=== PATIENT | female | born 1945 | race Caucasian/White ===

== ENCOUNTER 2017-10-04 10:50 | Outpatient (CLI) | payer MEDICARE ==
[~2017-10-04] VITALS: Ht 165.1 cm; Wt 79.5 kg
--- NOTE | ~2017-10-04 | HEMODYNAMI ---
PATIENT:RANJANA CHRISTIANSON MEDICAL RECORD: [id number] : 47 LOCATION:DOPAL ADMISSION DATE: 10/04/17 Generatedon:10/04/201713:36 Patient name: RANJANA CHRISTIANSON Patient #: [id number] SSN: : 1945 Date of study: 10/04/2017 Page: Of Hemodynamic Procedure Report Patient Data Patient Demographics Procedure consent was obtained First Name: RANJANA Gender: Female Last Name: SAMMY : 1945 [facility] Initial: K Age: 72 year(s) Patient #: [id number] Race: Unknown Additional ID: [id number] Contact details [address]: [address] [place] [address] [place] State: [place] City: [place] Zip code: [address] Past Medical History Allergies Allergen Reaction Date Comments Reported Other allergy 10/04/2017 Morphine, Sulfa Other allergy 10/04/2017 Lidocaine Admission Admission Data Admission Date: 10/04/2017 Admission Time: 10:50 Admit Source: Other Height (in.): 67 BSA: 1.91 (m2) Height (cm.): 170.18 BMI: 27.41 (kg/m2) Weight (lbs.): 175 Weight (kg.): 79.38 Lab Results Lab Result Date: 10/04/2017 Lab Result Time: 11:30 Biochemistry Name Units Result Min Max BUN mg/dl 21 --(----)-* 7 18 Creatinine mg/dl 0.9 --(-*--)-- 0.6 1.3 CBC Name Units Result Min Max Hematocrit % 41.6 -*(----)-- 42 54 Hemoglobin g/dl 13.8 --(*---)-- 13.5 17.5 Procedure Procedure Types Cath Procedure Diagnostic Procedure LHC LHC w/Coronaries Miscellaneous Procedures Moderate Sedation up to 15 minutes Procedure Description Procedure Date Procedure Date: 10/04/2017 Procedure Start Time: 13:24 Procedure End Time: 13:32 Procedure Staff Name Function Caesar Monroy MD Performing Physician Arlette Bone RT Scrub James Butler RN Nurse Karishma Soni RT Monitor Procedure Data Cath Procedure Fluoroscopy Diagnostic fluoroscopy Total fluoroscopy Time: 1.3 time: 1.3 min min Diagnostic fluoroscopy Total fluoroscopy dose: 337 dose: 337 mGy mGy Contrast Material Contrast Material Type Amount (ml) Isovue 300 55 Entry Location Entry Primary Successful Side Size Upsize Upsize Entry Closure Laird ccessful Closure Location (Fr) 1 (Fr) 2 (Fr) Remarks Device Remarks Radial Right 6 Fr Mechanical artery Short Compression Estimated blood loss: 10 ml Diagnostic catheters Device Type Used For End Catheter Placement Diagnostic Terumo 5Fr Procedure [place] 110cm catheter Procedure Complications No complications Procedure Medications Medication Administration Route Dosage Oxygen NC 2 l/min Heparin Flush Bag added to field 2 bags (1000units/500ml NS) 0.9% NaCl I.V. 100 ml/hr Radial Cocktail added to field 1 syringe (Verapomil 2mg/Nitro 400mcg/Heparin 1500units) Fentanyl I.V. 50 mcg Versed I.V. 1 mg Radial Cocktail I.A. 1 syringe (Verapomil 2mg/Nitro 400mcg/Heparin 1500units) Hemodynamics Rest BSA: 1.91 (m2) HGB: 13.8 (g/dl) O2 Consumption: Estimated: 186.42 (ml/min) O2 Co nsumption indexed: Estimated:97.6 (ml/min/m) Heart Rate: 85 (bpm) Pressure Samples Time Site Value (mmHg) Purpose Heart Use Rate(bpm) 13:26 LV 141/0,21 Snapshot 88 13:26 LV 132/1,16 Snapshot 87 13:27 AO 129/52(86) Snapshot 89 Gradients Valve Time Site Site Mean SEP/DFP Peak To Heart Use 1 2 (mmHg) (sec/min) Peak Rate (mmHg) (bpm) Aortic 13:27 LV AO 90 Snapshots Pre Cath Intra NCS Post Cath Vital Signs Time Heart Resp SPO2 etCO2 NIBP (mmHg) Rhythm Pain Sedation Rate (ipm) (%) (mmHg) Status Level (bpm) 13:12:20 82 20 98 0 160/75(128) NSR 0 (11) 10(A) , No pain 13:16:45 91 20 98 0 154/74(108) NSR 0 (11) 10(A) , No pain 13:21:05 85 21 100 31.8 141/71(110) NSR 0 (11) 9(A) , No pain 13:25:23 83 17 96 32.6 127/65(100) NSR 0 (11) 9(A) , No pain 13:29:39 82 19 93 28.8 117/56(87) NSR 0 (11) 9(A) , No pain 13:35:39 75 19 96 36.4 122/61(94) NSR 0 (11) 9(A) , No pain Medications Time Medication Route Dose Verified Delivered Reason Notes Effectiveness by by 13:19:49 Oxygen NC 2 l/min Caesar James Per Porfirio Butler RN physician 13:19:57 Heparin Flush added 2 bags Caesar James used for Bag to Porfirio Butler RN procedure (1000units/500ml field NS) 13:20:07 0.9% NaCl I.V. 100 Caesar James Per ml/hr Porfirio Butler RN physician 13:20:15 Radial Cocktail added 1 Caesar James used for (Verapomil to syringe Porfirio Butler slipper maker 2mg/Nitro field 400mcg/Heparin 1500units) 13:20:39 Fentanyl I.V. 50 mcg Caesar James for sedation Porfirio Butler RN 13:20:45 Versed I.V. 1 mg Caesar James for sedation Porfirio Butler RN 13:26:57 Radial Cocktail I.A. 1 Caesar Caesar for (Verapomil syringe Porfirio Monroy MD vasodilation 2mg/Nitro 400mcg/Heparin 1500units) Procedure Log Time Note 12:50:19 Informed consent obtained and on chart 12:50:58 Admit Source: Other 12:51:04 Diagnostic Cath status Elective 12:51:08 Nelson Bowen RT(R) sent for patient. Start room use. 12:51:09 Time tracking: Regular hours 12:51:14 Plan of Care:Hemodynamics will remain stable., Cardiac rhythm will remain stable., Comfort level will be maintained., Respiratory function will remain adequate., Patient/ family verbilizes understanding of procedure., Procedure tolerated without complication., Recovers from procedure without complications.. 12:51:33 H&P Date Dictated: 09/23/2017 Within 30 days and on chart., H&P Addendum completed by physician on day of procedure. (MUST COMPLETE FOR ALL OUTPATIENTS). 12:53:41 Lab Result : Hemoglobin 13.8 g/dl 12:53:41 Lab Result : Creatinine 0.9 mg/dl 12:53:41 Lab Result : BUN 21 mg/dl 12:53:41 Lab Result : Hematocrit 41.6 % 13:05:18 Patient received from Pre/Post Procedure Room to CCL 2 Alert and oriented. Tansferred to table in Supine position. 13:05:19 Warm blankets applied, and elizabeth hugger turned on for patient comfort. 13:05:20 Correct patient and procedure confirmed by team. 13:05:22 ECG and BP/O2 sat monitors applied to patient. 13:05:24 Pre-procedure instructions explained to patient. 13:05:27 Family in waiting room. 13:05:29 Patient NPO since Midnight. 13:05:58 Patient allergic to Other allergyMorphine, Sulfa 13:06:02 Is the patient allergic to Iodine/contrast media? No. 13:10:00 Procedure type changed to Cath procedure, Diagnostic procedure, LHC, LHC w/Coronaries, Miscellaneous Procedures, Moderate Sedation up to 15 minutes 13:10:15 Patient Height : 67 inches 13:10:21 Patient Weight : 175 lbs 13:11:08 Vital chart was started 13:11:10 Baseline sample Acquired. 13:11:14 Full Disclosure recording started 13:11:35 Patient allergic to Other allergyLidocaine 13:11:40 Is patient on blood thinner?No 13:12:00 Patient diabetic? Yes. 13:12:02 If diabetic: On Metformin? No 13:12:06 Snore? Yes 13:12:07 Sleep apnea? No 13:12:11 Dentures? No ? 13:12:21 IV patent on arrival in left forearm with 0.9% NaCl at [facility]. 13:12:30 Lab results completed and on chart. 13:12:34 Right Radial & Right Groin area was prepped with chlora-prep and draped in sterile fashion 13:12:35 Alarms reviewed by R. N. 13:12:36 Sharps counted by scrub and verified by R.N. 13:12:37 Physician paged 13:12:38 Physician arrived 13:12:39 --------ALL STOP TIME OUT------ 13:12:40 Final Timeout: patient, procedure, and site verified with staff and physician. All members of the team are in agreement. 13:12:42 Right Radial & Right Groin site verified by team. 13:12:46 Sedation plan: IV Moderate Sedation Versed, Fentanyl 13:14:03 Use device set Radial Dx 13:14:05 Acist Syringe opened to sterile field. 13:14:05 Medline Cath Pack opened to sterile field. 13:14:05 Bag Decanter opened to sterile field. 13:14:06 Terumo 6Fr Slender Glidesheath opened to sterile field. 13:14:06 St Marc 260cm J .035 wire opened to sterile field. 13:14:07 Acist Hand Control opened to sterile field. 13:14:07 Acist Manifold opened to sterile field. 13:14:08 Tegaderm 4 x 4 opened to sterile field. 13:14:08 MBrace Wrist Support opened to sterile field. 13:17:42 Cook 18G 7cm Percutaneous Entry needle opened to sterile field. 13:19:49 Oxygen 2 l/min NC was administered by James Butler RN; Per physician; 13:19:57 Heparin Flush Bag (1000units/500ml NS) 2 bags added to field was administered by James Butler RN; used for procedure; 13:20:07 0.9% NaCl 100 ml/hr I.V. was administered by James Butler RN; Per physician; 13:20:15 Radial Cocktail (Verapomil 2mg/Nitro 400mcg/Heparin 1500units) 1 syringe added to field was administered by James Butler RN; used for procedure; 13:20:39 Fentanyl 50 mcg I.V. was administered by James Butler RN; for sedation; 13:20:45 Versed 1 mg I.V. was administered by James Butler RN; for sedation; 13:24:14 Procedure started. 13:24:30 Local anesthetic to right radial artery with Lidocaine 2% by Caesar Monroy MD.INITIAL ACCESS ONLY 13:25:15 A 6 Fr Short sheath was inserted into the Right Radial artery 13:25:19 J wire advanced. 13:25:27 Zero performed for pressure channel P1 13:26:22 A Diagnostic Terumo 5Fr [place] 110cm catheter was advanced over the wire and used for Procedure. 13:26:57 Radial Cocktail (Verapomil 2mg/Nitro 400mcg/Heparin 1500units) 1 syringe I.A. was administered by Caesar Monroy MD; for vasodilation; 13:27:05 EF : 55 % 13:27:35 LV hemodynamics recorded. 13:27:42 LCA angiography performed. 13:28:57 RCA angiography performed. 13:30:13 Catheter removed. 13:30:14 Terumo TR Band Standard opened to sterile field. 13:30:27 Sheath removed intact; hemostasis achieved with Mechanical Compression to the Right Radial artery. 13:30:30 Procedure ended.(Physican Out) 13:30:48 Fluoroscopy time 01.30 minutes. 13:30:53 Fluoroscopy dose: 337 mGy 13:30:53 Flurop Dose total: 337 13:31:06 Contrast amount:Isovue 300 55ml. 13:31:07 Sharps counted by scrub and verified by R.N. 13:31:12 TR band inflated with 10cc of air. 13:31:16 Post Procedure Pulses reassessed and unchanged 13:31:32 Post procedure rhythm: sinus rhythm 13:31:34 Estimated blood loss: 10 ml 13:31:36 Post procedure instruction explained to patient.Patient verbalizes understanding. 13:31:45 Procedure and supply charges have been captured, reviewed, submitted and are correct. 13:32:20 Procedure Complication : No complications 13:32:22 Vital chart was stopped 13:32:23 See physician's report for complete and final results. 13:32:25 Report given to Pre/Post Procedure Room. 13:32:29 Patient transfered to Pre/Post Procedure Room with Stretcher. 13:32:31 Procedure ended. 13:32:31 Full Disclosure recording stopped 13:32:49 End room use (Document Last) Device Usage Item Name Manufacture Quantity Catalog Hospital Part Current Minima l Lot# / Number Charge Number Stock Stock Serial# Code Acist Acist 1 93461 194796 322815 [id number] 20 Syringe Medical Systems Inc Medline Cath Cardinal 1 [id number] 39833 541955 5 Pack Health Bag Decanter Microtek 1 963211 38543 390997 5 Medical Inc. Terumo 6Fr Terumo 1 [id number] 120488 499826 841310 [address] St Marc 1 257387 476616 204903 688984 30 260cm J .035 wire Acist Hand Acist 1 16577 357745 787917 171195 5 Control Medical Systems Inc Acist Acist 1 57506 254827 850200 617125 5 Manifold Medical Systems Inc Tegaderm 4 x 3M 1 1626W 960206 101858 326373 5 4 MBrace Wrist Advanced 1 140-0250-00 386352 61639 068693 5 Support Vascular Dynamics Cook 18G 7cm Cook Medical 1 [id number] 858907 60334 725427 5 Percutaneous Entry needle Diagnostic Terumo 1 40-1833 452831 670591 356354 5 Terumo 5Fr [place] 110cm catheter Terumo TR Terumo 1 [id number] 172914 318054 251066 40 Band Standard Signature Audit [place] Stage Time Signature Unsigned Intra-Procedure 10/04/2017 Karishma Soni 1:36:14 PM RT(R) Signatures Monitor : Karishma Soni Signature : RT Date : Time : [address] [place] [address]
[2017-10-04] MEDS ORDERED: TENORMIN50 MG PO (11:11)
[2017-10-04] MEDS ORDERED: LEVOTHYROXINE150 MCG PO (11:11)
[2017-10-04] MEDS ORDERED: LISINOPRIL10 MG PO (11:11)
[2017-10-04] MEDS ORDERED: NORVASC10 MG PO (11:12)
[2017-10-04] MEDS ORDERED: CYCLOBENZAPRINE10 MG PO (11:13)
[2017-10-04] MEDS ORDERED: GEMFIBROZIL600 MG PO (11:13)
[2017-10-04] MEDS ORDERED: BAYER CHEWABLE81 MG PO (11:14)
[2017-10-04] MEDS ORDERED: MOBIC7.5 MG PO (11:14)
[2017-10-04 11:18] VITALS: BP 139/69; Ht 165.1 cm; Wt 79.5 kg
[2017-10-04 11:34] LABS: BASOPHILS 0.5 % (0-2); EOSINOPHILS 8.3 % (0-7); HEMATOCRIT 41.6 % (36.0-48.0); HEMOGLOBIN 13.8 g/dL (12-16); IMMATURE GRANULOCYTES 0.5 % (0-5); LYMPHOCYTES 31.7 % (15-50); MCHC 33.2 g/dL (31.0-37.0); MCV 96.5 fL (80.0-100.0); MEAN PLATELET VOLUME 9.8 fL (7.4-10.4); MONOCYTES 8.5 % (2-11); NEUTROPHILS 50.5 % (40-80); PLATELET COUNT 267 10x3/uL (130-400); RBC 4.31 10x6/uL (4.00-5.40); RDW 12.4 % (11.5-14.5); WBC 7.3 10x3/uL (4.8-10.8)
[2017-10-04 11:57] LABS: ANION GAP 11.8 mmol/L (8-16); CALCIUM 9.9 mg/dL (8.5-10.1); CARBON DIOXIDE 28.5 mmol/L (21.0-32.0); CREATININE - SERUM 0.9 mg/dL (0.6-1.3); POTASSIUM - SERUM 4.3 mmol/L (3.5-5.1)
--- NOTE | 2017-10-04 14:28 | NUR ---
1400 HOB ELEVATED, ROOM AIR. NSR RATE 70 WNO C/O CHEST PAIN. PULSES PALP X 4. R WRIST TR BAND C/D/I W NO HEMATOMA OR BLEEDING. FAMILY AT BEDSIDE.
--- NOTE | 2017-10-04 15:10 | NUR ---
1440 R WRIST TR BAND C/D/I W NO HEMATOMA OR BLEEDING. ALL VITALS WNL.
--- NOTE | 2017-10-04 15:25 | NUR ---
1515 2CC AIR REMOVED FROM R WRIST TR BAND. WILL MONITOR FOR R BLEEDING.
--- NOTE | 2017-10-04 15:37 | NUR ---
AMBULATED TO BATHROOM TO VOID. BACK TO BEDSIDE. DR. DE LEON AT BEDSIDE TO SPEAK WITH FAMILY REGARDING MEDICATION CHANGES.
[2017-10-04] MEDS ORDERED: METOPROLOL TART25 MG PO (15:41)
--- NOTE | 2017-10-04 15:53 | NUR ---
2CC AIR REMOVED R WRIST TR BAND. PIV REMOVED FROM LEFT HAND WITH BANDAID APPLIED.
--- NOTE | 2017-10-04 16:05 | NUR ---
TR BAND WEANED. TEGADERM AND COTTON BALL APPLIED TO R WRIST. D/C INSTRUCTIONS DISCUSSED WITH PATIENT AND AT BEDSIDE. WHEELED OUT VIA WHEELCHAIR BY CATH TEAM.
== END 2017-10-04 16:07 | disposition home or self-care (01) ==
LOC: D.CATH 10:50
PROVIDERS: Internal Medicine Cardiovascular Disease
DX: I20.9 Angina pectoris, unspecified (principal); I10 Essential (primary) hypertension; R00.2 Palpitations; E78.5 Hyperlipidemia, unspecified; Z01.812 Encounter for preprocedural laboratory examination

== ENCOUNTER → 2017-10-27 11:17 | Outpatient (CLI) | payer MEDICARE ==
[2017-10-04 11:18] VITALS: BMI 29.1
[~2017-10-27 11:17] MED LIST: ATROVENT 0.02%2.5 ML UPD; BAYER CHEWABLE81 MG PO; CYCLOBENZAPRINE10 MG PO; GEMFIBROZIL600 MG PO; LEVAQUIN750 MG PO; LEVOTHYROXINE150 MCG PO; LISINOPRIL10 MG PO; METOPROLOL TART25 MG PO; MOBIC7.5 MG PO; NORVASC10 MG PO; PULMICORT0.5 MG/21 INH; TENORMIN50 MG PO
== END | disposition home or self-care (01) ==
LOC: D.CT 11:17
DX: R06.02 Shortness of breath (principal)

== ENCOUNTER 2017-10-27 18:18 | Inpatient (IN) | payer MEDICARE ==
[~2017-10-27] VITALS: Ht 167.6 cm; Wt 84.1 kg
[~2017-10-27 18:18] MED LIST changes: -ATROVENT 0.02%2.5 ML UPD; -LEVAQUIN750 MG PO; -PULMICORT0.5 MG/21 INH
[2017-10-27 20:33] LABS: BASOPHILS 0.5 % (0-2); EOSINOPHILS 5.8 % (0-7); HEMATOCRIT 39.9 % (36.0-48.0); HEMOGLOBIN 13.4 g/dL (12-16); IMMATURE GRANULOCYTES 0.5 % (0-5); LYMPHOCYTES 33.1 % (15-50); MCHC 33.6 g/dL (31.0-37.0); MCV 95.2 fL (80.0-100.0); MEAN PLATELET VOLUME 9.1 fL (7.4-10.4); MONOCYTES 9.4 % (2-11); NEUTROPHILS 50.7 % (40-80); PLATELET COUNT 291 10x3/uL (130-400); RBC 4.19 10x6/uL (4.00-5.40); RDW 12.3 % (11.5-14.5); WBC 7.8 10x3/uL (4.8-10.8)
[2017-10-27 21:04] LABS: ALBUMIN 3.7 g/dL (3.4-5.0); ALKALINE PHOSPHATASE 104 U/L (46-116); ALT (SGPT) 41 U/L (10-68); CALC OSMOLALITY 288 mosm/kg (275-300); CALCIUM 9.5 mg/dL (8.5-10.1); CHLORIDE - SERUM 108 mmol/L (98-107); CREATININE - SERUM 0.8 mg/dL (0.6-1.3); GLUCOSE 125 mg/dL (74-106); POTASSIUM - SERUM 3.5 mmol/L (3.5-5.1); PROTEIN - SERUM 7.4 g/dL (6.4-8.2); SODIUM 144 mmol/L (136-145); UREA NITROGEN 16 mg/dL (7-18); eGFR NON AFRICAN AMERICAN 75 mL/min (90-120)
[2017-10-27 21:07] LABS: TROPONIN-I 0.025 ng/mL (0.000-0.060)
[2017-10-28] VITALS (7 sets, daily range): BP systolic 132–149; BP diastolic 61–74; Ht 167.6 cm; Wt 84.1 kg
--- NOTE | 2017-10-28 00:20 | NUR ---
ADMITTED TO ROOM 2234 FROM ER VIA WHEELCHAIR. ACCOMPLAINTED BY FAMILY. ORIENTED TO ROOM. CL IN REACH.
--- NOTE | 2017-10-28 06:20 | NUR ---
RESTING QUIELTY. NO DISTRESS NOTED. CL IN REAC
--- NOTE | 2017-10-28 08:20 | NUR ---
AWAKE AND ALERT. ORIENTED X3. NO C/O AT THIS TIME. LUNGS ARE DIMINISHED IN LOWER LOBES. OCCASSIONAL DRY COUGH REPORTED. SKIN IS INTACT WITHOUT REDNESS. IV TO RIGHT AC IS PATENT WITHOUT REDNESS AT INSERTION SITE. DENIES NEEDS.
--- NOTE | 2017-10-28 09:10 | NUR ---
REQUESTED AND GIVEN ONE ULTRAM PO FOR C/O HEADACHE LEVEL 6. WILL MONITOR.
--- NOTE | 2017-10-28 09:12 | NUR ---
Patient Name: RANJANA CHRISTIANSON Admission Status: ER Accout number: [id number] Admission Date: 10-27-2017 : 1945 Admission Diagnosis: Attending: COLIN MOLINA Current LOS: 1 Anticipated DC Date: 11-02-2017 Planned Disposition: Home Primary Insurance: [facility] Discharge Planning Comments: CM MET WITH PATIENT REGARDING D/C NEEDS AND PLANS. PATIENT STATED SHE LIVES WITH HER SPOUSE (JULIO) AND HE OR HER CHILDREN WILL DRIVE HER HOME AT DISCHARGE. PATIENT STATED THERE ARE NO STEPS OR STAIRS AT HER HOME. PATIENT IS INDEPENDENT WITH HER CARE AND HAS A WALKER, WHEELCHAIR, SHOWER CHAIR, AND CANE AT HER HOME. PATIENTS PCP IS DR. HURTADO AND PHARMACY IS [facility]. CM WILL CONTINUE TO FOLLOW PATIENT WITH D/C NEEDS AND PLANS. PCP DR[facility] ([facility]) [phone] JULIO (SPOUSE) [phone] End Maker: Elvira Tapia Is the patient Alert and Oriented? Yes 0 * How many steps to enter\exit or inside your home? 0 0 * PCP DR[facility] HURTADO [facility] 0 * [facility]acy [facility] 0 * Preadmission Environment Home with Family 0 * ADLs Independent 0 * Equipment Cane Shower Chair Walker Wheelchair 0 * List name and contact numbers for known caregivers / representatives who currently or will assist patient after discharge: JULIO CHRISTIANSON (SPOUSE) [phone] 0 * Community resources currently utilized None 0 * Additional services required to return to the preadmission environment? Yes 0 * Can the patient safely return to the preadmission environment? Yes 0 * Has this patient been hospitalized within the prior 30 days at any hospital? No 0 Grand Total: 0
--- NOTE | 2017-10-28 11:03 | NUR ---
REPORTS HEAD ACHE IMPROVED AT THIS TIME. FAMILY IN ROOM.
--- NOTE | 2017-10-28 18:21 | NUR ---
ATE ALL OF SUPPER SHE WANTED. ALSO ATE SOME FOOD FAMILY BROUGHT IN. NO CHANGES NOTED. DENIES NEEDS.
[2017-10-29 01:03] VITALS: BP 125/56
[2017-10-29 05:24] VITALS: BP 131/63
--- NOTE | 2017-10-29 06:00 | NUR ---
IV TO RIGHT AC LEAKING. STARTED IV TO RIGHT FOREARM 22G X'S 1 ATTEMPT. SALINE LOCKED IV.
[2017-10-29 06:36] LABS: BASOPHILS 0.2 % (0-2); EOSINOPHILS 0.5 % (0-7); HEMOGLOBIN 12.2 g/dL (12-16); IMMATURE GRANULOCYTES 0.6 % (0-5); LYMPHOCYTES 19.7 % (15-50); MCH 31.6 pg (26.0-34.0); MCV 95.9 fL (80.0-100.0); MEAN PLATELET VOLUME 9.5 fL (7.4-10.4); MONOCYTES 8.3 % (2-11); NEUTROPHILS 70.7 % (40-80); PLATELET COUNT 302 10x3/uL (130-400); RBC 3.86 10x6/uL (4.00-5.40); RDW 12.7 % (11.5-14.5)
[2017-10-29 06:44] LABS: WBC 11.9 10x3/uL (4.8-10.8)
[2017-10-29 06:53] LABS: ANION GAP 12.5 mmol/L (8-16); CALCIUM 8.9 mg/dL (8.5-10.1); CARBON DIOXIDE 27.7 mmol/L (21.0-32.0); CREATININE - SERUM 0.9 mg/dL (0.6-1.3); POTASSIUM - SERUM 4.2 mmol/L (3.5-5.1)
[2017-10-29 07:49] LABS: ERYTHROCYTE SEDIMENTATION RATE 6 mm/hr (0-30)
[2017-10-29 08:26] VITALS: BP 143/65
--- NOTE | 2017-10-29 08:51 | NUR ---
AWAKE AND ALERT. ORIENTED X3. NO C/O AT THIS TIME. LUNGS ARE CLEAR BILATERALLY, OCCASSIONAL DRY COUGH NOTED. SKIN IS INTACT WITHOUT REDNESS. SOME EDEMA NOTED TO BILATERAL ARMS. WILL MONITOR. SL TO RIGHT FOREARM IS PATENT WITHOUT REDNESS AT INSERTION SITE. SITTING UP IN CHAIR AT BEDSIDE AFTER EATING BREAKFAST. DENIES NEEDS.
[2017-10-29 13:03] VITALS: BP 124/58
[2017-10-29 16:05] VITALS: BP 136/63
[2017-10-29] MEDS ORDERED: LEVAQUIN750 MG PO (17:16)
[2017-10-29] MEDS ORDERED: ATROVENT 0.02%2.5 ML UPD (17:51)
[2017-10-29] MEDS ORDERED: PULMICORT0.5 MG/21 INH (17:52)
--- NOTE | 2017-10-29 18:47 | NUR ---
DISCHARGED TO HOME AMBULATORY WITH FAMILY. DISCHARGE INSTRUCTIONS GIVEN BOTH VERBALLY AND WRITTEN. ALL QUESTIONS ANSWERED. PATIENT AND FAMILY VERBALIZED UNDERSTANDING OF SAME. NEEDED PRESCRIPTIONS ESCRIBED TO PHARMACY OF CHOICE. LEFT WITH ALL BELONGINGS.
[2017-10-30 07:22] LABS: IMMUNOGLOBULIN E 707 IU/mL (0-100)
[2017-10-31 18:07] LABS: CYCLIC CITRULL PEPTIDE IGG/IGA 21 units (0-19)
[2017-11-01 10:10] LABS: ANA REFLEX - DIRECT Negative (Negative)
[2017-11-02 03:12] LABS: MYCOPLASMA PNEUMO IGG 176 U/mL (0-99)
--- NOTE | 2017-11-02 12:15 | CN ---
PATIENT NAME:RANJANA CHRISTIANSON MEDICAL RECORD: [id number] : [birth year] LOCATION:D.MS Francis2234 ADMIT DATE: 10/27/17 ACCOUNT: [id number] CONSULTING PHYSICIAN: JENNIFER SEWELL MD REFERRING PHYSICIAN: COLIN MOLINA MD DATE OF CONSULTATION: 10/29/2017 DIAGNOSES: 1. Dysrhythmia -- premature ventricular contractions. 2. Hypertension. 3. Hyperlipidemia. 4. Pneumonia. 5. Possible lung mass. HISTORY OF PRESENT ILLNESS: Ms. Christianson presents with shortness of breath, dyspnea on exertion, found to have pneumonia, possible lung mass. She has had infrequent PVCs are unifocal on her EKG. Her echocardiogram was with a normal ejection fraction and normal chamber sizes. She is on a beta-kasia in the form of metoprolol 25 mg b.i.d. as well for her blood pressure. She is on lisinopril and amlodipine. PHYSICAL EXAMINATION: GENERAL APPEARANCE: Well-nourished, well-developed, appears stated age. Level of distress, comfortable. PSYCHIATRIC: Mental status, alert, normal affect. Orientation, oriented to time, place and person. EYES: Lids and conjunctiva, noninjected. No discharge, no pallor. ENT: Lips, teeth, gums, normal dentition. Oropharynx, no cyanosis, no pallor. NECK: Carotid arteries, bilateral normal upstroke, no bruits, no thrills. JUGULAR VEINS: No jugular venous pressure or distention. CERVICAL LYMPH NODES: Nontender, nonenlarged. THYROID: Not enlarged. Nontender. No nodules. LUNGS: Respiratory effort, unlabored. CHEST: Normal curvature. No thoracic deformity. No chest wall tenderness. Percussion, resonant. Auscultation, clear. No wheezes, no rales, no rhonchi. CARDIOVASCULAR: Precordial exam, nondisplaced. No heaves or pericardial thrills. Rate and rhythm, regular. Heart sounds, normal S1, normal S2. No S3, no gallop, no rub. Systolic murmur, not heard. Diastolic murmur, not heard. EXTREMITIES: No cyanosis, no edema. Peripheral pulses, full and equal in all extremities, except as noted. No bruits appreciated. ABDOMEN: Soft, nondistended. Normal aorta. No bruit. Nontender. No masses. Liver, nontender, no hepatomegaly. Spleen, nontender, no splenomegaly. MUSCULOSKELETAL: No joint tenderness. No joint swelling. No erythema. NEUROLOGICAL: Normal gait, normal strength, normal tone. SKIN: Warm and dry. OVERALL IMPRESSION: Asymptomatic premature ventricular contractions, benign dysrhythmia, normal echocardiogram. No other cardiac workup or treatment is necessary. Continue the metoprolol. TRANSINT:[id number] Voice Confirmation ID: [id number] DOCUMENT ID: [id number] CONSULT REPORT [id number] RANJANA CHRISTIANSON JEFFREY MD at 1215 CC: [id number] DICTATION DATE: 10/29/17 1406 SPLICER APPRENTICE: 10/29/17 1500 DIS IN 10/29/17 [id number] [place] [address]
--- NOTE | 2017-11-02 12:15 | EC ---
PATIENT:RANJANA CHRISTIANSON DATE OF SERVICE: 10/27/17 SEX: F MEDICAL RECORD: [id number] DATE OF : [birth year] LOCATION:D.MS [place] AGE OF PATIENT: 72 ADMISSION DATE: 10/27/17 REFERRING PHYSICIAN: INTERPRETING PHYSICIAN: JENNIFER SEWELL MD ECHOCARDIOGRAM REPORT ECHO CHARGES 4 ECHO COMPLETE CLINICAL DIAGNOSIS: CHF HX OF HTN/PVC'S ECHOCARDIOGRAPHIC MEASUREMENTS (adult normal given) AC root (d.<3.7cm) 3.3 cm LV Septum d (<1.2 cm> 1.1 cm Valve Excursion 1.9 cm LV Septum (systole) 1.6 cm Left Atria (s.<4.0cm> 3.3 cm LVPW d(<1.2cm) 1.8 cm RV (d.<2.3cm) 3.1 cm LVPW (sytole) 2.0 cm LV diastole(<5.6CM) 4.1 cm MV E-F(>70mm/sec) cm LV systole 2.0 cm LVOT Diameter 2.0 cm MV exc.(>10mm) 1.2 cm Est.ejection fraction (50-75%) % Pericardial Effusion N DOPPLER: LVIT cm/sec A 101 cm/sec E 122 cm/sec LA cm/sec RVSP 22 mmHg LVOT 109 cm/sec AOP1/2T m/s Asc. Ao 111 cm/sec RVOT 79 cm/sec RA cm/sec PA 100 cm/sec AV Gradient Peak 4.94 mmHg AV Mean 2.50 mmHg AV Area 3.2 cm MV Gradient Peak 7.17 mmHg MV Mean 2.87 mmHg MV Area cm COMMENTS: Armature Winder: Guru CEBALLOS Word Processing Specialist: Guru Monroy TAPE# PACS DATE OF SERVICE: 10/29/2017 PROCEDURE: Echocardiogram. FINDINGS: 1. Left ventricle chamber size is within normal limits. Left ventricular systolic function is normal. Overall ejection fraction estimated at 60%. 2. Left atrium is within normal limits at 3.3 cm. Right atrium and right ventricular chamber sizes are mildly dilated now, upper limits are normal. 3. Valvular structures have normal structure and motion. ECHOCARDIOGRAM REPORT [id number] RANJANA CHRISTIANSON 4. Doppler interrogation reveals trace to mild mitral regurgitation, trace to mild tricuspid regurgitation, no other valvular insufficiency or stenosis. Pulmonary systolic pressure is normal estimated 22 mmHg. 5. No evidence of pericardial effusion or left ventricular thrombus. TRANSINT:[id number] Voice Confirmation ID: [id number] DOCUMENT ID: [id number] JENNIFER SEWELL MD at 1215 CC: [id number] DICTATION DATE: 10/29/17 1426 CONTRACT MODELER: 10/29/17 1553 DIS IN 10/29/17 [id number] [place] [id number]
[2017-11-02 16:13] LABS: ANCA - ANTIMYELOPEROXIDASE <9.0 U/mL (0.0-9.0); ANCA - ANTIPROTEINASE 3 <3.5 U/mL (0.0-3.5); ANCA - ATYPICAL <1:20 titer (Neg:<1:20); ANCA - CYTOPLASMIC <1:20 titer (Neg:<1:20); ANCA - PERINUCLEAR <1:20 titer (Neg:<1:20)
== END 2017-10-29 18:49 | disposition home or self-care (01) | DRG 194 ==
LOC: D.ER 18:18 → D.MS 21:54
PROVIDERS: Emergency Medicine; Internal Medicine Pulmonary Disease; ADMIT Family Medicine
DX: J18.9 Pneumonia, unspecified organism (principal); J98.11 Atelectasis; R91.8 Other nonspecific abnormal finding of lung field; I10 Essential (primary) hypertension; E78.5 Hyperlipidemia, unspecified; E03.9 Hypothyroidism, unspecified; I49.3 Ventricular premature depolarization; Z88.1 Allergy status to other antibiotic agents; J45.909 Unspecified asthma, uncomplicated; G47.33 Obstructive sleep apnea (adult) (pediatric)

== ENCOUNTER → 2019-05-15 08:00 | Outpatient (CLI) | payer MEDICARE ==
[2017-10-28 08:15] VITALS: BMI 29.9
[~2019-05-15 08:00] MED LIST changes: +ATROVENT 0.02%2.5 ML UPD; +LEVAQUIN750 MG PO; +PULMICORT0.5 MG/21 INH
== END | disposition home or self-care (01) ==
LOC: D.MAMMO 04-28 13:30
PROVIDERS: ATTEND Family Medicine
DX: Z12.31 Encounter for screening mammogram for malignant neoplasm of breast (principal)